=== PATIENT | male | born 1955 | race Caucasian/White ===

== ENCOUNTER 2021-02-21 16:41 | Emergency (ER) | payer BC, MEDICAID, MEDICARE ==
[2021-02-21 17:06] VITALS: BP 124/102; PULSE 107; O2SAT 95
--- NOTE | 2021-02-21 18:20 | ERPHSYRPT ---
- History of Present Illness Time Seen by Provider: 02/21/21 16:56 Source: patient Exam Limitations: no limitations Patient Subjective Stated Complaint: Pt states that he has had black stools for the past 2-3 weeks Triage Nursing Assessment: Pt brought self to the ER, tachycardic, denies pain, was sent here from [facility], skin n/wd, pulses normal, pt states that he had a bowel movement today that was black, pt still recovering from covid and gets winded easily Physician History: 65 years old male with history of tobacco abuse, COPD, recent COVID-19 almost 4 weeks ago with continued to have generalized weakness fatigue and tiredness and sent in ER from [facility] for abnormal EKG. Patient reports he went to [facility] to see if he can get some antibody infusion to get his strength back. Reports having shortness of breath with exertional work for quite some time which is not any worse than usual. Denies any cough fever or chills but achiness and fatigued all over. EKG done at [facility] showed right bundle branch block but he denies any chest pain palpitations or history of CAD. Patient last EKG was done somewhere in [place] 5 years ago. Patient also reports having dark stools without any abdominal pain, history of GERD/peptic ulcer. Not taking any blood thinners. Timing/Duration: week(s), constant, gradual onset Severity: moderate Modifying Factors: Worsens With: movement Associated Symptoms: weakness Allergies/Adverse Reactions: No Known Drug Allergies Allergy (Verified 02/21/21 17:06) Travel Risk - International Travel Have you traveled outside of the country in past 3 weeks: No - Coronavirus Screening Are you exhibiting any of the following symptoms?: No Close contact with a COVID-19 positive Pt in past 14-21 Days: No - Vaccine Status Have you recieved a Covid-19 vaccination: No - Review of Systems Constitutional: Fatigue, Weakness Eyes: No Symptoms Ears, Nose, & Throat: No Symptoms Respiratory: Cough Cardiac: No Symptoms Abdominal/Gastrointestinal: No Symptoms Genitourinary Symptoms: No Symptoms Musculoskeletal: Myalgias Skin: No Symptoms Neurological: No Symptoms Psychological: No Symptoms Endocrine: No Symptoms Hematologic/Lymphatic: No Symptoms Immunological/Allergic: No Symptoms - Past Medical History Pertinent Past Medical History: Yes Musculoskeletal History: Fractures Psycho-Social History: Depression - Past Surgical History Past Surgical History: Yes Male Surgical History: Testicular Surgery Other Surgical History: left testicle - Social History Smoking Status: Current every day smoker Exposure to second hand smoke: Yes Drug Use: marijuana Patient Lives Alone: Yes - Nursing Vital Signs Nursing Vital Signs: Initial Vital Signs Temperature 99.2 F 02/21/21 16:47 Pulse Rate 107 H 02/21/21 16:47 Blood Pressure 124/102 02/21/21 16:47 O2 Sat by Pulse Oximetry 95 02/21/21 16:47 Pain Scale Pain Intensity 0 - Physical Exam General Appearance: no apparent distress Eye Exam: PERRL/EOMI, eyes nml inspection Ears, Nose, Throat Exam: normal ENT inspection, TMs normal, pharynx normal, moist mucous membranes Neck Exam: normal inspection, non-tender, supple, full range of motion Respiratory Exam: airway intact, wheezing (Few scattered), No chest tenderness, No accessory muscle use Cardiovascular Exam: regular rate/rhythm, normal heart sounds Gastrointestinal/Abdomen Exam: soft, normal bowel sounds, No tenderness Back Exam: normal inspection, normal range of motion Extremity Exam: normal inspection, normal range of motion Neurologic Exam: alert, oriented x 3, cooperative Skin Exam: normal color SpO2 Interpretation: normal SpO2: 95 O2 Delivery: Room Air - Course EKG Interpreted by Me: RATE ([id number]), Sinus Tach, Left Adams Deviation, NORMAL INTERVALS, Right Bundle Branch Block, Non-specific ST Changes Ordered Tests: Active Orders 24 hr Category Date Time Status TROPONIN Q3H Lab 02/21/21 17:57 Completed TROPONIN Q3H Lab 02/21/21 23:00 Ordered Lab/Rad Data: Laboratory Results 02/21/21 Range/Units 17:57 Troponin I < 0.012 (0.000-0.034) ng/mL - Progress Progress: unchanged Progress Note: 02/21/21 18:18 Patient is currently asymptomatic. Has stable H&H. He is taking vitamins which might have iron making his stool dark. I would start him on Protonix and have him outpatient follow-up with primary care and gastroenterology see if needs scope. I do not see any ST elevation in the EKG and troponins are negative, patient is asymptomatic. Do not think needs any further evaluation but recommended outpatient cardiology follow-up. 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 Do not smoke. Drink plenty of fluids to keep yourself well-hydrated. Follow-up with primary care for reevaluation and may need endoscopy/colonoscopy for further evaluation of dark stool if it continues. Return to ER if having chest pain, shortness of breath, worsening weakness, feeling dizzy lightheaded etc. Prescriptions: PANTOPRAZOLE 40 mg Tablet [Protonix 40MG Tablet] 40 mg PO QAM #30 tab
== END 2021-02-21 19:06 | disposition home or self-care (01) ==
LOC: ED 16:41
DX: R94.31 Abnormal electrocardiogram [ECG] [EKG] (principal); R00.0 Tachycardia, unspecified; U09.9 Post COVID-19 condition, unspecified; R53.83 Other fatigue; J44.9 Chronic obstructive pulmonary disease, unspecified; Z72.0 Tobacco use
CPT/HCPCS: 36415; 84484; 99283

== ENCOUNTER 2024-06-22 05:51 | Day surgery (SDC) | payer MEDICARE ==
[2024-06-22] MEDS: Lactated Ringers 1,000 ML IV SCH (06:16)
[2024-06-22] MEDS ORDERED: Versed 2 MG/2 ML Injection ONE (07:33)
[2024-06-22] MEDS ORDERED: propofoL IV ONE ×2 (07:34→07:42)
[2024-06-22 08:43] VITALS: RESP 18; TEMP 97.5
[2024-06-22 08:45] VITALS: BP 140/84; PULSE 78; O2SAT 99
--- NOTE | 2024-06-23 11:18 | OP ---
SURGERY DATE/TIME: 06/22/24 [id number] PREOPERATIVE DIAGNOSIS: Screening exam. POSTOPERATIVE DIAGNOSIS: 1) Severe sigmoid diverticulosis. 2) Ascending colon polyp. PROCEDURE: Colonoscopy with cold forceps biopsy. SURGEON: Kartik Rutherford MD ANESTHESIA: Medications given by the anesthesia department. INDICATIONS: The patient is a 68-year-old white male patient presenting now here for screening colonoscopy. He reports that he had one previously about 10 years ago with no problems. The patient was described the risks of the procedure and the risks of perforation, phlebitis, untoward reaction to medication, bleeding, and missed lesions. The patient verbalized his understanding and desired to have the procedure performed. DESCRIPTION OF PROCEDURE AND FINDINGS: The patient was given medication by the anesthesia department. He had continuous pulse oximetry, ECG monitoring, and intermittent blood pressure monitoring during the examination. He was placed in left lateral decubitus position. Digital rectal examination was performed and revealed external hemorrhoids. Anal sphincter tone was normal. There were no masses felt. The prostate was felt to be normal. The flexible Olympus videocolonoscope was used to intubate the rectum. A view of the colon was developed sequentially to the cecum. There was noted to be an ascending colon polyp that was sessile. This was biopsied using cold biopsy technique, destroying the lesion. No other lesions being noted other than severe sigmoid diverticulosis, the scope was removed. The patient tolerated the procedure well and sent back to outpatient recovery in good condition. The prep was noted to be fair to good.
== END 2024-06-22 08:45 | disposition home or self-care (01) ==
LOC: SDC 05:51
PROVIDERS: ATTEND Family Medicine
DX: Z12.11 Encounter for screening for malignant neoplasm of colon (principal); K57.30 Diverticulosis of large intestine without perforation or abscess without bleeding; K63.5 Polyp of colon
CPT/HCPCS: 88305; J2250; J2704